=== PATIENT | male | born 1950 | race Two or more races ===

== ENCOUNTER 2017-03-27 21:22 | Emergency (ER) | payer OTHER ==
[~2017-03-27] VITALS: Ht 172.7 cm; Wt 85.0 kg
[~2017-03-27 21:22] MED LIST: ALPR0.5T6 PO; ASPI-664 PO; ATEN100T PO; CAPT50TA PO; ERGO500014 PO; GABA300C16 PO; GEMF600T PO; LEVO500T72 PO; NAPR-688 PO; OMEP40CA6 PO
[2017-03-27 21:27] VITALS: Ht 172.7 cm; Wt 85.0 kg
[2017-03-27] MEDS ORDERED: BACI28.34 TOP (22:04)
--- NOTE | 2017-03-27 23:17 | ERD ---
ER Documentation Chief Complaint Date/Time DATE: 03/27/17 TIME: 23:14 Chief Complaint blackish color elevated nodule at his back w/ slight bleeding HPI This is a 67-year-old male presents to the ER with a black skin lesion on the left side of his abdomen. Patient noticed this about a year ago, however area is now growing and it started bleeding today. Lesion is round and black. He denies any fevers or chills he denies any discharge from the area. He denies any redness around the area. ROS 12 point review of systems was done, all negative except per HPI. Medications Home Meds Active Scripts Bacitracin* (Bacitracin Zinc Oint*) 28.35 Gm Oint, 1 APPLIC TOP BID for 7 Days, TUB APPLI TO Prov:CADY HODGES 03/27/17 Levofloxacin* (Levaquin*) 500 Mg Tablet, 500 MG PO DAILY for 3 Days, TAB Prov:SRINI SALAZAR MD 07/04/16 Reported Medications Ergocalciferol* (Drisdol* (Vitamin D2)) 50,000 Unit Capsule, [address] UNIT PO Q7D, CAP 07/02/16 Alprazolam* (Alprazolam*) 0.5 Mg Tablet, 0.5 MG PO BID Y for ANXIETY, TAB 07/02/16 Gabapentin* (Gabapentin*) 300 Mg Capsule, 300 MG PO BID 07/23/13 Naproxen* (Naproxen*) 500 Mg Tablet, 500 MG PO BID 07/23/13 Gemfibrozil* (Lopid*) 600 Mg Tablet, 600 MG PO BID 07/23/13 Atenolol* (Atenolol*) 100 Mg Tablet, 100 MG PO DAILY 07/23/13 Captopril* (Capoten*) 50 Mg Tablet, 50 MG PO TID 07/23/13 Aspirin* (Aspirin* EC) 81 Mg Tablet.dr, 81 MG PO DAILY 07/23/13 Omeprazole* (Omeprazole*) 40 Mg Capsule.dr, 40 MG PO DAILY 07/23/13 Allergies Allergies: Coded Allergies: Penicillins (Verified Allergy, Mild, 07/02/16) PMhx/Soc History of Surgery: No Anesthesia Reaction: No Hx Neurological Disorder: No Hx Respiratory Disorders: No Hx Cardiac Disorders: Yes (Hypertension) Hx Psychiatric Problems: Yes (takes alprazolam for anxiety) Hx Miscellaneous Medical Probl: No Hx Alcohol Use: No Hx Substance Use: No Hx Tobacco Use: No Smoking Status: Never smoker Physical Exam Vitals Vital Signs Date Time Temp Pulse Resp B/P Pulse Ox O2 Delivery O2 Flow Rate FiO2 03/27/17 21:27 97.9 68 20 150/69 98 Physical Exam Const: [] GENERAL: The patient is well developed and appropriate for usual state of health , in no apparent distress. HEENT: Atraumatic. CHEST: Clear to auscultation bilaterally. There are no rales, wheezes or rhonchi. HEART: Regular rate and rhythm. No murmurs, clicks, rubs or gallops. NEURO: Alert and oriented. SKIN: There is a nickel size round black raised lesion to that right side of the patient's abdomen. Procedures/MDM This is a 66-year-old male presents to the ER with a lesion to his skin. This is a very worrisome for skin cancer. Area has been growing and getting darker in color. I expressed my concern to the patient's daughter who was translating throughout the patient encounter. Since patient has been scratching an area, I gave him bacitracin for any potential infection. I advised him that the best thing they can do is to follow-up with a senior technologist and get a biopsy as soon as possible. I provided them with a personal recommendation for senior technologist, in case they are not able to get a timely authorization. Patient urgently needs to follow-up with his primary care doctor within 1-2 days and request a dermatology appointment. At this time patient is afebrile and well-appearing. He needs to return to ER sooner if symptoms worsen. I shared my medical decision making with his daughter and patient, they understand and agree with plan. Departure Diagnosis: Primary Impression: Skin change Condition: Stable Patient Instructions: Types of Skin Cancer, Recognizing Skin Cancer Referrals: ISAIAS VELA MD (PCP) Additional Instructions: SPECIALIST: YOU HAVE A MEDICAL CONDITION WHICH REQUIRES YOU TO SEE A SPECIALIST WITHIN THE NEXT 1-2 DAYS. PLEASE FOLLOW UP WITH YOUR PRIMARY PHYSICIAN FOR REFFERAL.IF YOU DO NOT HAVE A PRIMARY CARE PHYSICIAN AND/OR YOU CAN NOT AFFORD TO SEE A PHYSICIAN THE FOLLOWING RESOURCES HAVE BEEN SUPPLIED TO YOU. IT IS YOUR RESPONSIBILITY TO BE SEEN BY THE SPECIALIST CHIEF DIGITAL MEDIA OFFICER-> YOU URGENTLY NEED A BIOPSY OF THIS SKIN MASS Dr[facility] [id number] [place] [address] [phone] CADY HODGES Mar 27, 2017 23:17
== END 2017-03-27 23:05 | disposition home or self-care (01) ==
LOC: FTE 21:22
DX: R23.9 Unspecified skin changes (principal); I10 Essential (primary) hypertension; Z79.82 Long term (current) use of aspirin
CPT/HCPCS: 99283

== ENCOUNTER 2018-02-14 08:59 | Emergency (ER) | END 2018-02-14 15:59 | disposition home or self-care (01) ==

== ENCOUNTER 2018-02-17 08:20 | Emergency (ER) | END 2018-02-17 09:20 | disposition home or self-care (01) ==

== ENCOUNTER 2018-05-16 23:11 | Emergency (ER) | END 2018-05-17 02:27 | disposition home or self-care (01) ==